=== PATIENT | male | born 1995 | race Caucasian/White ===

== ENCOUNTER 2018-05-21 07:49 | Emergency (ER) | payer SELFPAY ==
--- NOTE | 2018-05-21 09:22 | EDPHYS ---
Physician Documentation [facility] Name: Denys Triana Age: 22 yrs Sex: Male : 1995 Arrival Date: 05/21/2018 Time: 07:53 Bed 18 Private MD: Cynthia Wilcox ED Physician Dg Ramesh HPI: 05/21 08:31 This 22 yrs old Male presents to ER via Ambulatory with complaints of Ankle kb Pain. 08:32 The patient presents with pain, that is acute. The complaints affect the left ankle. kb Onset: The symptoms/episode began/occurred 1 week(s) ago. Context: The problem was sustained at work, resulted from an unknown cause, The mechanism of injury is unknown. The patient can fully bear weight on the affected extremity. the patient is able to ambulate. Associated signs and symptoms: The patient has no apparent associated signs or symptoms. Modifying factors: The symptoms are alleviated by nothing, the symptoms are aggravated by weight bearing. Severity of symptoms: At their worst the symptoms were mild, moderate, in the emergency department the symptoms are unchanged. The patient has not experienced similar symptoms in the past. The patient has not recently seen a physician. Pt states "I recently started working and my left ankle has been hurting since the first day.". Denies injury or trauma. 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 - Social history:: Smoking status: Patient/guardian denies using tobacco. - Ebola Screening: : No symptoms or risks identified at this time. ROS: 08:36 Constitutional: Negative for fever, chills, and weight loss, Neck: Negative for injury, kb pain, and swelling, Cardiovascular: Negative for chest pain, palpitations, and edema, Respiratory: Negative for shortness of breath, cough, wheezing, and pleuritic chest pain, Abdomen/GI: Negative for abdominal pain, nausea, vomiting, diarrhea, and constipation, Skin: Negative for injury, rash, and discoloration, Neuro: Negative for headache, weakness, numbness, tingling, and seizure. 08:36 MS/extremity: Positive for pain, of the left lateral malleolus. Exam: 08:36 Constitutional: This is a well developed, well nourished patient who is awake, alert, kb and in no acute distress. Head/Face: Normocephalic, atraumatic. Chest/axilla: Normal chest wall appearance and motion. Nontender with no deformity. No lesions are appreciated. Cardiovascular: Regular rate and rhythm with a normal S1 and S2. No gallops, murmurs, or rubs. Normal PMI, no JVD. No pulse deficits. Respiratory: Lungs have equal breath sounds bilaterally, clear to auscultation and percussion. No rales, rhonchi or wheezes noted. No increased work of breathing, no retractions or nasal flaring. Abdomen/GI: Soft, non-tender, with normal bowel sounds. No distension or tympany. No guarding or rebound. No evidence of tenderness throughout. Skin: Warm, dry with normal turgor. Normal color with no rashes, no lesions, and no evidence of cellulitis. MS/ Extremity: Pulses equal, no cyanosis. Neurovascular intact. Full, normal range of motion. Neuro: Awake and alert, GCS 15, oriented to person, place, time, and situation. Cranial nerves II-XII grossly intact. Motor strength 5/5 in all extremities. Sensory grossly intact. Cerebellar exam normal. Normal gait. Vital Signs: 08:03 BP 144 / 78; Pulse 104; Resp 16; Temp 97.4; Pulse Ox 99% on R/A; Weight 104.33 kg; hb Height 5 ft. 10 in. (177.80 cm); Pain 7/10; 09:10 BP 120 / 75; Pulse 65; Resp 18; Pulse Ox 99% on R/A; em 08:03 Body Mass Index 33.00 (104.33 kg, 177.80 cm) hb MDM: 08:00 Patient medically screened. kb 08:31 Data reviewed: vital signs, nurses notes. Data interpreted: Pulse oximetry: on room air kb is 99 %. Interpretation: normal. Counseling: I had a detailed discussion with the patient and/or guardian regarding: the historical points, exam findings, and any diagnostic results supporting the discharge/admit diagnosis, radiology results, the need for outpatient follow up, a orthopedic surgeon, to return to the emergency department if symptoms worsen or persist or if there are any questions or concerns that arise at home. 05/21 08:02 Order name: Ankle Left 3 View XRAY kb Administered Medications: No medications were administered Disposition: 16:07 Co-signature as Attending Physician, Dg Ramesh MD I agree with the assessment and kdr plan of care. Disposition: 05/21/18 09:22 Discharged to Home. Impression: Pain in left ankle and joints of left foot. - Condition is Stable. - Discharge Instructions: Ankle Pain. - Medication Reconciliation Form, Thank You Letter, Antibiotic Education, Prescription Opioid Use form. - Follow up: Emergency Department; When: As needed; Reason: Worsening of condition. Follow up: Private Physician; When: 2 - 3 days; Reason: Recheck today's complaints, Continuance of care, Re-evaluation by your physician. Signatures: Dispatcher [employer] EDMS Kerry Biggs, ZINC FURNACE CHARGER-C ZINC FURNACE CHARGER-Dg Calderón MD MD [facility] Pierre Mackenzie, FREIGHT RATE CLERK FREIGHT RATE CLERK em Nimisha Gomez, NYA RN Corrections: (The following items were deleted from the chart) 09:34 09:22 05/21/2018 09:22 Discharged to Home. Impression: Pain in left ankle and joints of em left foot. Condition is Stable. Forms are Medication Reconciliation Form, Thank You Letter, Antibiotic Education, Prescription Opioid Use. Follow up: Emergency Department; When: As needed; Reason: Worsening of condition. Follow up: Private Physician; When: 2 - 3 days; Reason: Recheck today's complaints, Continuance of care, Re-evaluation by your physician. kb
--- NOTE | 2018-05-21 09:22 | ER ---
Nurse's Notes [facility] Name: Denys Triana Age: 22 yrs Sex: Male : 1995 Arrival Date: 05/21/2018 Time: 07:53 Bed 18 Private MD: Cynthia Wilcox Diagnosis: Pain in left ankle and joints of left foot Presentation: 05/21 08:04 Presenting complaint: Patient states: Left ankle pain x 1 week. Denies injury. hb Transition of care: patient was not received from another setting of care. Onset of symptoms was May 21, 2018. Risk Assessment: Do you want to hurt yourself or someone else? Patient reports no desire to harm self or others. Initial Sepsis Screen: Does the patient meet any 2 criteria? No. Patient's initial sepsis screen is negative. Does the patient have a suspected source of infection? No. Patient's initial sepsis screen is negative. Care prior to arrival: None. 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 - Social history:: Smoking status: Patient/guardian denies using tobacco. - Ebola Screening: : No symptoms or risks identified at this time. Screenin:07 Abuse screen: Denies threats or abuse. Denies injuries from another. Nutritional hb screening: No deficits noted. Tuberculosis screening: No symptoms or risk factors identified. Fall Risk None identified. Assessment: 08:20 General: Appears in no apparent distress. comfortable, Behavior is calm, cooperative. em Pain: Complains of pain in left lateral malleolus Pain currently is 5 out of 10 on a pain scale. Neuro: Level of Consciousness is awake, alert, obeys commands, Oriented to person, place, time, situation. Cardiovascular: Patient's skin is warm and dry. Respiratory: Airway is patent Respiratory effort is even, unlabored, Respiratory pattern is regular, symmetrical. Derm: Skin is intact, is healthy with good turgor, Skin is pink, warm \T\ dry. Musculoskeletal: Range of motion: intact in all extremities, Swelling absent. Injury Description: no trauma. 08:30 Reassessment: I agree with previous assessment. hb 09:10 Reassessment: Patient appears in no apparent distress at this time. Patient and/or em family updated on plan of care and expected duration. Pain level reassessed. Patient is alert, oriented x 3, equal unlabored respirations, skin warm/dry/pink. Vital Signs: 08:03 BP 144 / 78; Pulse 104; Resp 16; Temp 97.4; Pulse Ox 99% on R/A; Weight 104.33 kg; hb Height 5 ft. 10 in. (177.80 cm); Pain 7/10; 09:10 BP 120 / 75; Pulse 65; Resp 18; Pulse Ox 99% on R/A; em 08:03 Body Mass Index 33.00 (104.33 kg, 177.80 cm) hb ED Course: 07:53 Patient arrived in ED. mr 07:54 Cynthia Wilcox MD is Private Physician. mr 07:54 Kerry Biggs FNP-C is [facility]. kb 07:54 Dg Ramesh MD is Attending Physician. kb 08:03 Arm band placed on. hb 08:06 Triage completed. hb 08:07 Patient has correct armband on for positive identification. Bed in low position. Call hb light in reach. Side rails up X 1. 08:29 Pierre Mackenzie LVN is Primary Nurse. em 08:47 X-ray completed. Portable x-ray completed in exam room. Patient tolerated procedure kw well. 08:50 Ankle Left 3 View XRAY In Process Unspecified. EDMS 09:30 No provider procedures requiring assistance completed. Patient did not have IV access em during this emergency room visit. Administered Medications: No medications were administered Outcome: 09:22 Discharge ordered by . kb 09:30 Discharged to home ambulatory. em 09:30 Condition: good 09:30 Discharge instructions given to patient, Instructed on discharge instructions, follow up and referral plans. Demonstrated understanding of instructions, follow-up care. 09:34 Patient left the ED. em Signatures: Dispatcher [employer] EDMS Kerry Biggs FNP-C FNP-Ckb Tiago Cathryn mr Pierre Mackenzie LVN LVN em Haily Dean Heather, RN RN hb Corrections: (The following items were deleted from the chart) 09:32 08:10 BP 120 / 75; Pulse 65bpm; Resp 18bpm; Pulse Ox 99% RA; em em
[2018-05-21 09:38] VITALS: TEMP 97.4; O2SAT 99
[2018-05-21 09:39] VITALS: BP 120/75
--- NOTE | 2018-05-21 10:17 | RAD REPORT ---
EXAM DESCRIPTION: RAD - Ankle Left 3 View - 05/21/2018 8:49 am CLINICAL HISTORY: Nontraumatic left ankle pain, history of clubfoot COMPARISON: None. FINDINGS: No acute fracture changes present. No dislocation or periosteal reaction. There is some [place] remottling along the anterior margin of the tibiotalar joint space. There is a generally flattened and minimized talar dome. No focal abnormality at the talar dome. Posterior talocalcaneal joint effu usama is seen. No joint effusion suspected. No air or foreign body in the soft tissues peer IMPRESSION: No fracture or acute bone or joint finding seen. The above detailed findings are probably all long-term sequela of the corrected club foot deformity.
== END 2018-05-21 09:34 | disposition home or self-care (01) ==
LOC: ER 07:49
DX: M25.572 Pain in left ankle and joints of left foot (principal); E03.9 Hypothyroidism, unspecified
CPT/HCPCS: 99283

== ENCOUNTER 2020-01-18 11:49 | Emergency (ER) | payer SELFPAY ==
--- OUTSIDE RECORDS SUMMARY | 2020-01-18 11:51 | XMS REPORT | Clinical Summary ---
:1995 Author Organization [facility] [employer] Address [address] [place] [id number] Care Team Providers Name Role Phone Cynthia Wiclox MD Primary Care Provider Allergies No Known Active Allergies Medications Medication Sig Dispensed Refills Start Date End Date Status levothyroxine (SYNTHROID, daily. 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
[2020-01-18] MEDS ORDERED: TETRACAINE HCL 0.5% 4ML OPTH ONE (12:30)
[2020-01-18] MEDS ORDERED: FLUORESCEIN SODIUM 1 MG/WRAP ONE (12:30)
--- NOTE | 2020-01-18 12:38 | ER ---
Nurse's Notes [facility] Name: Denys Triana Age: 24 yrs Sex: Male : 1995 Arrival Date: 01/18/2020 Time: 11:52 Bed 19 Private MD: Diagnosis: Unspecified disorder of eye and adnexa Presentation: 01/17 11:54 Chief complaint: Patient states: LEFT EYE REDNESS, IRRITATION FOR 2 HOURS. NO FEVER. 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 Coronavirus screen: Client denies travel out of the [place] in the last 14 days. At this time, the client does not indicate any symptoms associated with coronavirus-19. Ebola Screen: Patient denies travel to an Ebola-affected area in the 21 days before illness onset. Initial Sepsis Screen: Does the patient meet any 2 criteria? No. Patient's initial sepsis screen is negative. Risk Assessment: Do you want to hurt yourself or someone else? Patient reports no desire to harm self or others. Onset of symptoms was January 18, 2020. 11:54 Method Of Arrival: Ambulatory ll1 11:54 Acuity: IVORY 4 ll1 12:21 Initial Sepsis Screen: Does the patient have a suspected source of infection? No. ph Patient's initial sepsis screen is negative. Historical: - Allergies: 11:57 No Known Allergies; ll1 - PMHx: 11:57 Hypothyroidism; ll1 - PSHx: 11:57 Club Foot - bilateral; ll1 - Immunization history:: Flu vaccine is not up to date. - Social history:: Smoking status: Patient reports use of chewing tobacco. Patient denies any tobacco usage or history of. Screenin:21 Abuse screen: Denies threats or abuse. Denies injuries from another. Nutritional ph screening: No deficits noted. Tuberculosis screening: No symptoms or risk factors identified. Fall Risk None identified. Assessment: 12:20 General: Appears in no apparent distress. comfortable, Behavior is calm, cooperative, ph appropriate for age. Pain: Complains of pain in left eye. Neuro: Level of Consciousness is awake, alert, obeys commands, Oriented to person, place, time, situation. Cardiovascular: No deficits noted. Respiratory: No deficits noted. EENT: Sclera/Cornea are reddened in left eye. Derm: Skin is intact, is healthy with good turgor, Skin is pink, warm \T\ dry. Musculoskeletal: Circulation, motion, and sensation intact. Range of motion: intact in all extremities. Vital Signs: 11:54 BP 130 / 74; Pulse 89; Resp 17; Temp 98.4; Pulse Ox 100% ; Weight 99.79 kg; Height 5 ll1 ft. 10 in. (177.80 cm); Pain 4/10; 12:53 BP 122 / 76; Pulse 78; Resp 18; Temp 97.6; Pulse Ox 100% on R/A; ph 11:54 Body Mass Index 31.57 (99.79 kg, 177.80 cm) 1 ED Course: 11:52 Patient arrived in ED. mr 11:56 Sekou Poole PA is PHCP. [facility] 11:56 Dg Ramesh MD is Attending Physician. [facility] 11:56 Triage completed. 1 11:57 Arm band placed on Patient placed in an exam room, on a stretcher. 1 12:10 Socorro Sunshine RN is Primary Nurse. ph 12:21 Patient has correct armband on for positive identification. Bed in low position. Call ph light in reach. Side rails up X 1. Pulse ox on. NIBP on. 12:42 Mark García MD is Referral Physician. [facility] 12:53 No provider procedures requiring assistance completed. Patient did not have IV access ph during this emergency room visit. Administered Medications: 12:35 Drug: Tetracaine Drops 0.5 % 1 drops Route: Ophthalmic; Site: left eye; ph 12:52 Follow up: Response: No adverse reaction ph Outcome: 12:37 Discharge ordered by MD. [facility] 12:53 Discharged to home ambulatory. ph 12:53 Condition: good 12:53 Discharge instructions given to patient, Instructed on discharge instructions, follow up and referral plans. medication usage, Demonstrated understanding of instructions, follow-up care, medications, Prescriptions given X 1. 12:54 Patient left the ED. ph Signatures: Sekou Poole PA PA jmm Rivera, Mary mr Socorro Sunshine, RN RN ph Demetrio Rondon RN RN 1
--- NOTE | 2020-01-18 12:38 | EDPHYS ---
Physician Documentation [facility] Name: Denys Triana Age: 24 yrs Sex: Male : 1995 Arrival Date: 01/18/2020 Time: 11:52 Bed 19 Private MD: ED Physician Dg Ramesh HPI: 01/17 12:54 This 24 yrs old Male presents to ER via Ambulatory with complaints of Redness jmm of Eye. 12:54 The patient is experiencing burning, pain, redness. Onset: The symptoms/episode jmm began/occurred gradually, 2 hour(s) ago. Duration: the symptoms are continuous. Aggravated by nothing. Alleviated by nothing. This is a 24 year old male with a history of hypothyroidism that presents to the ED with complaints of left eye irritation and FB sensation beneath his left lower lid. Patient states this occurred after cutting wood. Patient is UTD on tetanus immunization. Historical: - Allergies: 11:57 No Known Allergies; ll1 - PMHx: 11:57 Hypothyroidism; ll1 - PSHx: 11:57 Club Foot - bilateral; ll1 - Immunization history:: Flu vaccine is not up to date. - Social history:: Smoking status: Patient reports use of chewing tobacco. Patient denies any tobacco usage or history of. ROS: 12:54 Constitutional: Negative for fever, chills, and weight loss, Cardiovascular: Negative jmm for chest pain, palpitations, and edema, Respiratory: Negative for shortness of breath, cough, wheezing, and pleuritic chest pain. 12:54 Abdomen/GI: Negative for abdominal pain, nausea, vomiting, diarrhea, and constipation, Neuro: Negative for headache, weakness, numbness, tingling, and seizure. 12:54 Eyes: Positive for foreign body sensation, redness. 12:54 ENT: Positive for 12:54 All other systems are negative. Exam: 12:54 Constitutional: This is a well developed, well nourished patient who is awake, alert, jmm and in no acute distress. Head/Face: atraumatic. 12:54 Chest/axilla: Normal chest wall appearance and motion. Cardiovascular: Regular rate and rhythm. No edema appreciated Respiratory: Normal respirations, no respiratory distress appreciated Abdomen/GI: Non distended, soft Back: Normal ROM Skin: General appearance color normal MS/ Extremity: Moves all extremities, no obvious deformities appreciated, no edema noted to the lower extremities Neuro: Awake and alert, normal gait Psych: Behavior is normal, Mood is normal, Patient is cooperative and pleasant 12:54 Eyes: Extraocular movements: intact throughout, Conjunctiva: injected, in the left eye, Corneas: foreign body, is not appreciated, a fluorescein strip employed to appreciate the findings, Lids and lashes: Vital Signs: 11:54 BP 130 / 74; Pulse 89; Resp 17; Temp 98.4; Pulse Ox 100% ; Weight 99.79 kg; Height 5 ll1 ft. 10 in. (177.80 cm); Pain 4/10; 12:53 BP 122 / 76; Pulse 78; Resp 18; Temp 97.6; Pulse Ox 100% on R/A; ph 11:54 Body Mass Index 31.57 (99.79 kg, 177.80 cm) ll1 MDM: 12:20 Patient medically screened. [facility] 12:35 Data reviewed: vital signs, nurses notes. Counseling: I had a detailed discussion with [facility] the patient and/or guardian regarding: the historical points, exam findings, and any diagnostic results supporting the discharge/admit diagnosis, the need for outpatient follow up, to return to the emergency department if symptoms worsen or persist or if there are any questions or concerns that arise at home. 13:38 ED course: NO FB appreciated or dye uptake appreciated on exam. Due to mechanism of [facility] possible injury patient prescribed topical abx and advised to follow up with discharge planner and otherwise given strict return precautions. Patient understood and agrees with the plan of care. . 01/17 12:06 Order name: Eye Tray; Complete Time: 12:19 [facility] 01/17 12:06 Order name: Fluoresene Opth strip; Complete Time: 12:20 [facility] Administered Medications: 12:35 Drug: Tetracaine Drops 0.5 % 1 drops Route: Ophthalmic; Site: left eye; ph 12:52 Follow up: Response: No adverse reaction ph Disposition: 14:21 Co-signature as Attending Physician, Dg Ramesh MD I agree with the assessment and kdr plan of care. Disposition: 01/18/20 12:37 Discharged to Home. Impression: Unspecified disorder of eye and adnexa. - Condition is Stable. - Discharge Instructions: Corneal Abrasion, [id number]. - Prescriptions for Erythromycin 5 mg/gram (0.5 %) Ophthalmic Ointment - apply 1 centimeter by OPHTHALMIC route 2-3 times daily for 7 days; 1 tube. - Medication Reconciliation Form, Thank You Letter, Antibiotic Education, Prescription Opioid Use form. - Follow up: Private Physician; When: 2 - 3 days; Reason: Recheck today's complaints, Continuance of care, Re-evaluation by your physician. Follow up: Mark García MD; When: 2 - 3 days; Reason: Recheck today's complaints, Continuance of care, Re-evaluation by your physician. Signatures: Dg Ramesh MD MD [facility] Sekou Poole PA PA [facility] Socorro Sunshine RN RN Demetrio Rondon RN RN ll1 Corrections: (The following items were deleted from the chart) 12:42 12:37 01/18/2020 12:37 Discharged to Home. Impression: Unspecified disorder of eye and jmm adnexa. Condition is Stable. Forms are Medication Reconciliation Form, Thank You Letter, Antibiotic Education, Prescription Opioid Use. Follow up: Private Physician; When: 2 - 3 days; Reason: Recheck today's complaints, Continuance of care, Re-evaluation by your physician. [facility] 12:54 12:42 01/18/2020 12:37 Discharged to Home. Impression: Unspecified disorder of eye and ph adnexa. Condition is Stable. Discharge Instructions: Corneal Abrasion, [id number]. Prescriptions for Erythromycin 5 mg/gram (0.5 %) Ophthalmic Ointment - apply 1 centimeter by OPHTHALMIC route 2-3 times daily for 7 days; 1 tube. and Forms are Medication Reconciliation Form, Thank You Letter, Antibiotic Education, Prescription Opioid Use. Follow up: Private Physician; When: 2 - 3 days; Reason: Recheck today's complaints, Continuance of care, Re-evaluation by your physician. Follow up: Mark García; When: 2 - 3 days; Reason: Recheck today's complaints, Continuance of care, Re-evaluation by your physician. [facility]
[2020-01-18 12:58] VITALS: O2SAT 100
[2020-01-18 13:00] VITALS: BP 122/76; TEMP 97.6
== END 2020-01-18 12:54 | disposition home or self-care (01) ==
LOC: ER 11:49
DX: H57.9 Unspecified disorder of eye and adnexa (principal); F17.220 Nicotine dependence, chewing tobacco, uncomplicated
CPT/HCPCS: 99283

== ENCOUNTER 2021-06-21 14:34 | Emergency (ER) | payer SELFPAY ==
--- OUTSIDE RECORDS SUMMARY | 2021-06-21 14:36 | XMS REPORT | Continuity of Care Document ---
:1995 Author Organization [facility] t Address [address] [place] [address] Care Team Providers Name Role Phone Emily Wilcox MD Primary Care Physician CARINA_Donna Attending Clinician Unavailable Carina Attending Clinician [phone] KANDICE_Ingris Attending Clinician Unavailable Christina Muller Attending Clinician [phone] JAY_A Attending Clinician Unavailable Koudela_A Attending Clinician Unavailable keffer_a Attending Clinician Unavailable CARINA_Donna Admitting Clinician Unavailable SCHAARROKENDRA_Ingris Admitting Clinician Unavailable KEFFER_A Admitting Clinician Unavailable Kohermilola_A Admitting Clinician Unavailable keffer_a Admitting Clinician Unavailable Payers Payer Name Policy Type Policy Number Effective Date Expiration Date S [facility] [id number] [place] [id number] 2020 (PPO) 00:00:00 [facility] [id number] Problems Condition Condition Condition Status Onset Resolution Last Treating Co mments Source Name Details Category Date Date Treatment Clinician Date Dysfunctio Dysfunctio Problem Active [facility] of n of 04 da eustachian Eustachian 00:00: Me dical tube Tube 00 Group Dizziness Dizziness Problem Active [facility] 1-04 da 00:00: Medical 00 Group No known No known Disease Metho di active active st problems problems Hospit a l Allergies, Adverse Reactions, Alerts This patient has no known allergies or adverse reactions. Family History Family Member Diagnosis Comments Start Date Stop Date Source Natural father [facility] Natural mother [facility] Social History Social Habit Start Date Stop Date Quantity Comments Source History of Snuff User [facility] Alcohol intake 2020-04-30 2020-04-30 1.71 /d [facility] 00:[facility]00 [facility] Tobacco use and 2018-05-25 2018-05-25 User of smokeless Me [facility] exposure 00:00:00 00:00:00 tobacco Hospital Sex Assigned At [birth year] [facility] 00:00[facility]00 [facility] Smoking Status Start Date Stop Date Source Never smoked tobacco [facility] Medications Ordered Filled Start Stop Current Ordering Indication Dosage Frequency Signature Comments Components Source Medication Medication Date Date Medication? Clinician (SIG) Name Name ibuprofen Yes [id number] 800mg Q8H Take 1 [facility] (ADVIL) 800 1-[address] [facility] tablet 00:00: (800 mg Hospi ta 00 total) by l mouth every 8 (eight) hours as needed for mild pain or moderate pain. levothyroxi Yes Q24H daily. 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 Plan of Care Planned Activity Planned Date Details Comments Source Future Scheduled 2021-05-21 COVID-[address] [facility] Test 16:41:15 (1) [code = COVID-19 VACCINE (1)] Future Scheduled 2021-05-21 Hepatitis C [facility] Test 16:41:15 screening (procedure) [code = 289034584] Future Scheduled 2021-05-21 INFLUENZA VACCINE [facility] Test 16:41:15 [code = INFLUENZA VACCINE] Encounters Start End Encounter Admission Attending Care Care Encounter Source Date/Time Date/Time Type Type Clinicians Facility Department ID 2021-05-02 2021-05-02 Outpatient CARINA_S [facility] [id number] [place] 12:02:00 12:02:00 [facility] 2021-05-02 2021-05-02 [facility] [id number] [facility]:00:00 00:00:00 Rebecca [id number] 2021-04-04 2021-04-04 Outpatient CARINAS [facility] [id number] [place] 04:57:00 04:57:00 216 [facility] 2021-04-04 2021-04-04 Outpatient [facility] [id number] 00:00:00 00:00:00 Rebecca [id number] 2021-02-15 2021-02-15 Outpatient [facility] 361 [place] 07:55:00 07:55:00 _L [facility] 2021-01-29 2021-01-29 Outpatient [facility] [address] [place] 04:23:00 04:23:00 _L 012 [facility] 2021-01-29 2021-01-[address] [facility] [id number] 00:00:00 00:00:00 , Jazmin [id number] Christina [id number] 2021-01-22 2021-01-22 Outpatient [facility] [address] [place] 09:03:00 09:03:00 _L 005 [facility] 2021-01-21 2021-01-21 Outpatient KEFFER_A [facility] [id number] [place] 09:31:00 09:31:00 [id number] [facility] 2020-11-24 2020-11-24 Outpatient Koudela_A [facility] [id number] [place] 01:02:00 01:02:00 [id number] 2020-11-22 2020-11-22 Outpatient Koudela_A [facility] [id number] [place] 10:32:00 10:32:00 [id number] [facility] 2020-11-22 2020-11-22 Niki [facility] [place] - [id number] [facility] 00:00:00 00:00:00 Discovery Jatin da PA-C: 600 [facility] [address] [place] [address] , Ph. 2020-11-21 2020-11-21 Outpatient keffer_a [facility] [id number] [place] 12:02:00 12:02:00 [id number] [facility] 2020-03-07 2020-03-07 Outpatient keffer_a [facility] [id number] [place] 02:32:00 02:32:00 [id number] [facility] Results This patient has no known results.
[2021-06-21] MEDS ORDERED: KETOROLAC 30 MG/ML INJ ONE (15:16)
[2021-06-21 15:25] LABS: Absolute Lymphocytes (CBC) 2.7 K/uL (0.7-4.9); Hematocrit 43.3 % (39.6-49.0); Lymphocytes % 29.7 % (15.3-44.8); MPV 7.2 fL (7.6-11.3); RBC Red Blood Cell Count 5.11 M/uL (4.33-5.43)
[2021-06-21 15:34] LABS: Potassium 3.7 mmol/L (3.5-5.1); Uric Acid 8.3 mg/dL (3.5-7.2)
--- NOTE | 2021-06-21 17:03 | ER ---
Nurse's Notes [facility] Name: Denys Triana Age: 26 yrs Sex: Male : 1995 Arrival Date: 06/21/2021 Time: 14:36 Bed 16 Private MD: Diagnosis: Gout, unspecified;Idiopathic gout, right ankle and foot Presentation: 06/21 14:48 Chief complaint: Patient states: Right ankle pain that started last week and has been ww getting worse. Has a history of club foot. Coronavirus screen: Vaccine status: Patient reports receiving the 2nd dose of the covid vaccine. Client denies travel out of the [place] in the last 14 days. Ebola Screen: Patient negative for fever greater than or equal to 101.5 degrees Fahrenheit, and additional compatible Ebola Virus Disease symptoms Patient denies travel to an Ebola-affected area in the 21 days before illness onset. Initial Sepsis Screen: Does the patient meet any 2 criteria? No. Patient's initial sepsis screen is negative. Does the patient have a suspected source of infection? No. Patient's initial sepsis screen is negative. Risk Assessment: Do you want to hurt yourself or someone else? Patient reports no desire to harm self or others. Onset of symptoms is unknown. 14:48 Method Of Arrival: Ambulatory ww 14:48 Acuity: IVORY 4 ww Triage Assessment: 14:49 General: Appears in no apparent distress. Behavior is calm, cooperative. Pain: ww Complains of pain in right ankle, right Achilles and anterior aspect of right ankle. Neuro: Level of Consciousness is awake, alert, obeys commands, Oriented to person, place, time, situation, Moves all extremities. Gait is steady, Speech is normal. Cardiovascular: Capillary refill < 3 seconds Patient's skin is warm and dry. Respiratory: Airway is patent Respiratory effort is even, unlabored, Respiratory pattern is regular, symmetrical. GI: No signs and/or symptoms were reported involving the gastrointestinal system. : No signs and/or symptoms were reported regarding the genitourinary system. Derm: Skin is intact, is healthy with good turgor, Skin is pink, warm \T\ dry. Musculoskeletal: Circulation, motion, and sensation intact. Reports pain in right ankle. Historical: - Allergies: 14:49 No Known Allergies; ww - Home Meds: 14:49 Seroquel 25 mg Oral tab [Active]; ww - PMHx: 14:49 Hypothyroidism; ww - PSHx: 14:49 bilateral feet; ww - Immunization history:: Adult Immunizations up to date. - Social history:: Smoking status: Patient reports use of chewing tobacco. Patient uses alcohol, occasionally. Screenin:51 Abuse screen: Denies threats or abuse. Denies injuries from another. Nutritional ww screening: No deficits noted. Tuberculosis screening: No symptoms or risk factors identified. Fall Risk None identified. Assessment: 14:53 General: Appears uncomfortable, obese, well groomed, Behavior is calm, cooperative, cb5 appropriate for age. Pain: Complains of pain in anterior aspect of right ankle and right ankle Pain currently is 6 out of 10 on a pain scale. Neuro: No deficits noted. Level of Consciousness is awake, alert, obeys commands, Oriented to person, place, time, situation, Appropriate for age. Cardiovascular: No deficits noted. Respiratory: No deficits noted. GI: No deficits noted. : No deficits noted. EENT: No deficits noted. Derm: No deficits noted. Musculoskeletal: No deficits noted. 16:57 Reassessment: Patient and/or family updated on plan of care and expected duration. Pain cb5 level reassessed. Vital Signs: 14:48 BP 139 / 88; Pulse 103; Resp 16; Temp 98.9; Pulse Ox 99% on R/A; Weight 108.86 kg; ww Height 5 ft. 10 in. (177.80 cm); Pain 5/10; 14:48 Body Mass Index 34.44 (108.86 kg, 177.80 cm) ED Course: 14:36 Patient arrived in ED. am2 14:48 Sekou Poole PA is PHCP. [facility] 14:48 Joe Black MD is Attending Physician. [facility] 14:49 Triage completed. ww 14:49 Arm band placed on right wrist. ww 14:51 Patient has correct armband on for positive identification. Bed in low position. Call ww light in reach. Side rails up X 1. Pulse ox on. NIBP on. 14:53 Kavitha Tsang, RN is Primary Nurse. cb5 15:11 Basic Metabolic Panel Sent. cb5 15:11 CBC with Automated Diff Sent. cb5 15:11 Uric Acid Sent. cb5 15:11 BMP Sent. cb5 15:11 CBC with Diff Sent. cb5 15:12 Uric Acid Sent. cb5 16:44 Ankle Right 3 View XRAY In Process Unspecified. EDMS 17:03 Esequiel Garcia MD is Referral Physician. jmm 17:13 No provider procedures requiring assistance completed. intact, bleeding controlled, No cb5 redness/swelling at site. Pressure dressing applied. Administered Medications: 16:57 Drug: Ketorolac 30 mg Route: IVP; Site: right antecubital; cb5 Outcome: 17:03 Discharge ordered by . jmm 17:13 Discharged to home ambulatory. cb5 17:13 Condition: stable 17:13 Discharge instructions given to patient, Instructed on discharge instructions, follow up and referral plans. medication usage, safety practices, Demonstrated understanding of instructions, follow-up care, medications, Prescriptions given X 2. 17:14 Patient left the ED. cb5 Signatures: Dispatcher [employer] EDMS Sekou Poole PA PA jmm Moreno, Amanda am2 Shantel Lynn, RN RN Kavitha Nunez, RN RN cb5
--- NOTE | 2021-06-21 17:03 | EDPHYS ---
Physician Documentation [facility] Name: Denys Triana Age: 26 yrs Sex: Male : 1995 Arrival Date: 06/21/2021 Time: 14:36 Bed 16 Private MD: ED Physician Joe Black HPI: 06/21 14:56 This 26 yrs old Male presents to ER via Ambulatory with complaints of Ankle Injury - jmm right. 14:56 The patient presents with pain. Onset: The symptoms/episode began/occurred gradually. jmm Associated signs and symptoms: Pertinent positives: swelling. Modifying factors: The symptoms are alleviated by nothing, the symptoms are aggravated by weight bearing. This is a 26 year old v male with no chronic medical conditions that presents to the ED with complaints of right ankle pain. Denies injury. Patient states he has had gout in the great to toe before. . Historical: - Allergies: 14:49 No Known Allergies; ww - Home Meds: 14:49 Seroquel 25 mg Oral tab [Active]; ww - PMHx: 14:49 Hypothyroidism; ww - PSHx: 14:49 bilateral feet; ww - Immunization history:: Adult Immunizations up to date. - Social history:: Smoking status: Patient reports use of chewing tobacco. Patient uses alcohol, occasionally. ROS: 14:56 Constitutional: Negative for fever, chills, and weight loss, Cardiovascular: Negative jmm for chest pain, palpitations, and edema, Respiratory: Negative for shortness of breath, cough, wheezing, and pleuritic chest pain. 14:56 MS/extremity: Positive for pain. 14:56 All other systems are negative. Exam: 14:56 Constitutional: This is a well developed, well nourished patient who is awake, alert, jmm and in no acute distress. Head/Face: atraumatic. Eyes: EOMI, no conjunctival erythema appreciated ENT: Moist Mucus Membranes Neck: Trachea midline, Supple Chest/axilla: Normal chest wall appearance and motion. Cardiovascular: Regular rate and rhythm. No edema appreciated Respiratory: Normal respirations, no respiratory distress appreciated Abdomen/GI: Non distended, soft Back: Normal ROM 14:56 Musculoskeletal/extremity: right anterior ankle ttp, compartments are soft, full dorsalis pulse, NVI. 14:56 Skin: Appearance: Color: normal in color. 14:56 Neuro: Orientation: is normal, Mentation: is normal, Memory: is normal. 14:56 Psych: Behavior/mood is pleasant, cooperative. Vital Signs: 14:48 BP 139 / 88; Pulse 103; Resp 16; Temp 98.9; Pulse Ox 99% on R/A; Weight 108.86 kg; ww Height 5 ft. 10 in. (177.80 cm); Pain 5/10; 14:48 Body Mass Index 34.44 (108.86 kg, 177.80 cm) ww MDM: 14:56 Patient medically screened. heath 17:02 Data reviewed: vital signs, nurses notes. Counseling: I had a detailed discussion with [facility] the patient and/or guardian regarding: the historical points, exam findings, and any diagnostic results supporting the discharge/admit diagnosis, lab results, the need for outpatient follow up, to return to the emergency department if symptoms worsen or persist or if there are any questions or concerns that arise at home. 06/21 15:03 Order name: CBC with Diff [facility] 06/21 15:03 Order name: BMP [facility] 06/21 15:03 Order name: Uric Acid [facility] 06/21 15:04 Order name: CBC with Automated Diff; Complete Time: 16:10 [facility] 06/21 15:04 Order name: Basic Metabolic Panel; Complete Time: 16:10 [facility] 06/21 15:04 Order name: Uric Acid; Complete Time: 16:10 [facility] 06/21 15:03 Order name: Saline Lock; Complete Time: 15:11 [facility] 06/21 15:06 Order name: Ankle Right 3 View XRAY; Complete Time: 17:42 [facility] Administered Medications: 16:57 Drug: Ketorolac 30 mg Route: IVP; Site: right antecubital; cb5 Disposition Summary: 06/21/21 17:03 Discharge Ordered Location: Home [facility] Condition: Stable [facility] Diagnosis - Gout, unspecified [facility] - Idiopathic gout, right ankle and foot [facility] Followup: [facility] - With: Esequiel Garcia MD - When: 2 - 3 days - Reason: Recheck today's complaints, Continuance of care, Re-evaluation by your physician Discharge Instructions: - Discharge Summary Sheet [facility] - Gout [facility] - Low-Purine Eating Plan [facility] Forms: - Medication Reconciliation Form jmm - Thank You Letter jmm - Antibiotic Education jmm - Prescription Opioid Use jm Prescriptions: - Diclofenac Sodium 75 mg Oral Tablet Sustained Release - take 1 tablet by ORAL route 2 times per day; 30 tablet; Refills: 0, Product jmm Selection Permitted - Medrol (Javier) 4 mg Oral Tablets, Dose Pack - take 1 tablet by ORAL route as directed - follow package instructions; 1 jmm packet; Refills: 0, Product Selection Permitted Signatures: Dispatcher [employer] EDJoe Nath MD MD cha Mickail, Joel, PA PA jmm Wood, Whitney, RN RN ww Kavitha Tsang, RN RN cb5
--- NOTE | 2021-06-21 17:08 | RAD REPORT ---
EXAM DESCRIPTION: RAD - Ankle Right 3 View - 06/21/2021 4:44 pm CLINICAL HISTORY: Right ankle pain FINDINGS: No fracture or dislocation is seen. 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
[2021-06-21 17:23] VITALS: BP 139/88; TEMP 98.9; O2SAT 99
== END 2021-06-21 17:14 | disposition home or self-care (01) ==
LOC: ER 14:34
DX: M10.071 Idiopathic gout, right ankle and foot (principal); E03.9 Hypothyroidism, unspecified; F17.220 Nicotine dependence, chewing tobacco, uncomplicated
CPT/HCPCS: 36415; 80048; 84550; 85025; 96374; 99284

== ENCOUNTER 2022-10-11 14:52 | Emergency (ER) | payer SELFPAY ==
--- OUTSIDE RECORDS SUMMARY | 2022-10-11 14:57 | XMS REPORT | Continuity of Care Document ---
:1995 Author Organization [facility] t Address [address] [place] [address] Care Team Providers Name Role Phone Cynthia Wilcox MD Primary Care Physician LAISHA Attending Clinician Unavailable Rebecca Lim Attending Clinician [phone] LAVINIA Attending Clinician Unavailable Jazmin Muller Attending Clinician [phone] JAY_Alberta Attending Clinician Unavailable Koudela_A Attending Clinician Unavailable keffer_a Attending Clinician Unavailable José ROMERO, Varun Rocha Attending Clinician WATERS_S Admitting Clinician Unavailable LAVINIA Admitting Clinician Unavailable KEFFER_A Admitting Clinician Unavailable Koudela_A Admitting Clinician Unavailable keffer_a Admitting Clinician Unavailable Payers Payer Name Policy Type Policy Number Effective Date Expiration Date S [facility] [id number] [place] [id number] 2020 (PPO) 00:00:00 [facility] [id number] Problems Condition Condition Condition Status Onset Resolution Last Treating Co mments Source Name Details Category Date Date Treatment Clinician Date Mixed Mixed Problem Active 2020-04 [place] anxiety Anxiety 0-12 Communi and and 00:00: ty depressive Depressive 00 Ho spita disorder Disorder l Clinics Dysfunctio Dysfunctio Problem Active [facility] n of n of 04-23 da eustachian Eustachian 00:00: Me dical tube Tube 00 Group Dizziness Dizziness Problem Active [facility] 04 da 00:00: Medical 00 Group No known No known Disease Metho di active active st problems problems Hospit a l Allergies, Adverse Reactions, Alerts Allergy Allergy Status Severity Reaction(s) Onset Inactive Treating Comm ents Source Name Type Date Date Clinician Zithroma Allergy Active [place] x to Communi substanc ty e Hospita l Clinics Family History Family Member Diagnosis Comments Start Date Stop Date Source Natural father [facility] Natural mother [facility] Social History Social Habit Start Date Stop Date Quantity Comments Source Gender identity [facility] Sexual [facility] History of tobacco Snuff User [facility] use [facility] Alcohol intake 2020-04-30 2020-04-30 Current drinker [facility] 00:00:00 00:00:00 of alcohol Hospital (finding) History of Social 2020-04-30 2020-04-[address] function 00:00:00 00:00:00 Hospital Tobacco use and 2018-05-25 2018-05-25 User of Yarsanism exposure 00:00:00 00:00:00 smokeless Hospital tobacco Sex Assigned At [birth year] [facility] 00:00:00 00:00:00 Hospital Smoking Status Start Date Stop Date Source Current Every Day Smoker [facility] Never smoked tobacco [facility] Medications Ordered Filled Start Stop Current Ordering Indication Dosage Frequency Signature Comments Components Source Medication Medication Date Date Medication? Clinician (SIG) Name Name ibuprofen Yes [id number] 800mg Q8H Take 1 [facility] (ADVIL) 800 1-[address] MG tablet 00:00: (800 mg Hospi ta 00 total) by l mouth every 8 (eight) hours as needed for mild pain or moderate pain. ibuprofen Yes [id number] 800mg Q8H Take 1 [facility] (ADVIL) 800 1-[address] MG tablet 00:00: (800 mg Hospi ta 00 total) by l mouth every 8 (eight) hours as needed for mild pain or moderate pain. ibuprofen Yes [id number] 800mg Q8H Take 1 [facility] (ADVIL) 800 1-[address] MG tablet 00:00: (800 mg Hospi ta 00 total) by l mouth every 8 (eight) hours as needed for mild pain or moderate pain. ibuprofen Yes [id number] 800mg Q8H Take 1 [facility] (ADVIL) 800 1-[address] MG tablet 00:00: (800 mg Hospi ta 00 total) by l mouth every 8 (eight) hours as needed for mild pain or moderate pain. levothyroxi 2019-0 Yes Q24H daily. Meth [facility] ne 2-11 st (SYNTHROID, 14:09: Hospit a LEVOXYL) 37 l 100 mcg tablet levothyroxi 2019-0 Yes Q24H daily. Meth [facility] ne 2-[facility] st (SYNTHROID, 14:09: Hospit a LEVOXYL) 37 l 100 mcg tablet levothyroxi 2019-0 Yes Q24H daily. Meth [facility] ne 2-[facility] st (SYNTHROID, 08:09: Hospit a LEVOXYL) 37 l 100 mcg tablet levothyroxi 2019-0 Yes Q24H daily. Meth [facility] ne [facility] st (SYNTHROID, 08:09: Hospit a LEVOXYL) 37 l 100 mcg tablet prednisone prednisone No 1 BID prednisone [place] 20 mg 20 mg 20 mg Communi tablet Take tablet Take tablet ty 1 tablet 1 tablet Take 1 Hospi ta twice a day twice a day tablet l by oral by oral twice a Clinic s route for 5 route for 5 day by days. days. oral route for 5 days. sertraline sertraline No sertraline [place] 25 mg 25 mg 25 mg Communi tablet Take tablet Take tablet ty 1 tablet 1 tablet Take 1 Hospi ta every day every day tablet l by oral by oral every day Clin ics route as route as by oral directed directed route as for 30 for 30 directed days. days. for 30 days. dicyclomine dicyclomine No 1 TID dicyclomin [place] 20 mg 20 mg e 20 mg Communi tablet Take tablet Take tablet ty 1 tablet 3 1 tablet 3 Take 1 H ospita times a day times a day tablet 3 l by oral by oral times a Clinic s route as route as day by needed. needed. oral route as needed. guanfacine guanfacine No 1 Q1D guanfacine [place] ER 1 mg ER 1 mg ER 1 mg Commun i tablet,exte tablet,exte tablet,ext ty nded nded ended Hospita release 24 release 24 release 24 l hr Take 1 hr Take 1 hr Take 1 Clinics tablet tablet tablet every day every day every day by oral by oral by oral route in route in route in the evening the evening the for 30 for 30 evening days. days. for 30 days. sertraline sertraline No sertraline [place] 25 mg 25 mg 25 mg Communi tablet TAKE tablet TAKE tablet ty 1 TABLET BY 1 TABLET BY TAKE 1 Hospita MOUTH 1 MOUTH 1 TABLET BY l TIME EACH TIME EACH MOUTH 1 Cl inics DAY DAY TIME EACH DAY sertraline sertraline No 1 Q1D sertraline [place] 25 mg 25 mg 25 mg Communi tablet Take tablet Take tablet ty 1 tablet 1 tablet Take 1 Hospi ta every day every day tablet l by oral by oral every day Clin ics route as route as by oral directed directed route as for 30 for 30 directed days. days. for 30 days. acetylcyste acetylcyste No 2capsul BID acetylcyst [place] ine 600 mg ine 600 mg e(s) eine 600 Communi capsule capsule mg capsule ty Take 2 Take 2 Take 2 Hospita capsules capsules capsules l twice a day twice a day twice a Clinics by oral by oral day by route. route. oral route. doxycycline doxycycline No 1capsul BID doxycyclin [place] hyclate 100 hyclate 100 e(s) e hyclate Communi mg capsule mg capsule 100 mg t y Take 1 Take 1 capsule Hospita capsule capsule Take 1 l twice a day twice a day capsule Clinics by oral by oral twice a route for route for day by 10 days. 10 days. oral route for 10 days. fenofibrate fenofibrate No 1 Q1D fenofibrat [place] nanocrystal nanocrystal e C ommuni lized 145 lized 145 nanocrysta ty mg tablet mg tablet llized 145 Hospita Take 1 Take 1 mg tablet l tablet tablet Take 1 Clinics every day every day tablet by oral by oral every day route. route. by oral route. ivermectin ivermectin No 2 BID ivermectin [place] 3 mg tablet 3 mg tablet 3 mg C ommuni Take 2 Take 2 tablet ty tablets tablets Take 2 Hospita twice a day twice a day tablets l by oral by oral twice a Clinic s route for 5 route for 5 day by days. days. oral route for 5 days. Immunizations Ordered Immunization Filled Immunization Date Status Commen ts Source Name Name COVID-19, mRNA, COVID-19, mRNA, 2020-12-18 Completed [facility] LNP-S, PF, 30 LNP-S, PF, 30 00:00:00 Hospital Clinics mcg/0.3 mL dose mcg/0.3 mL dose ([employer]) ([employer]) COVID-19, mRNA, COVID-19, mRNA, 2020-11-17 Completed [facility] LNP-S, PF, 30 LNP-S, PF, 30 00:00:00 Hospital Clinics mcg/0.3 mL dose mcg/0.3 mL dose ([employer]) ([employer]) Vital Signs Vital Name Observation Time Observation Value Comments Source BP Diastolic 2021-05-02 00:00:00 82 mm[Hg] [facility] s Height 2021-05-02 00:00:00 70 [in_i] [facility] s BMI (Body Mass 2021-05-02 00:00:00 34.8 kg/m2 [facility]) Hospital Clinic s BP Systolic 2021-05-02 00:00:00 136 mm[Hg] [facility] s Body Weight 2021-05-02 00:00:00 3878.4 [oz_av] [facility] s BP Diastolic 2021-04-04 00:00:00 79 mm[Hg] [facility] s Height 2021-04-04 00:00:00 70 [in_i] [facility] s BMI (Body Mass 2021-04-04 00:00:00 34.7 kg/m2 [facility]) [facility] s BP Systolic 2021-04-04 00:00:00 137 mm[Hg] [facility] s Body Weight 2021-04-04 00:00:00 3868.8 [oz_av] [facility] s BP Diastolic 2021-01-29 00:00:00 85 mm[Hg] [facility] s Height 2021-01-29 00:00:00 70 [in_i] [facility] s BP Systolic 2021-01-29 00:00:00 131 mm[Hg] [facility] s BP Diastolic 2020-11-22 00:00:00 80 mm[Hg] [facility] Height 2020-11-22 00:00:00 70 [in_i] [facility] BMI (Body Mass 2020-11-22 00:00:00 35.4 kg/m2 [facility]) Group BP Systolic 2020-11-22 00:00:00 122 mm[Hg] [facility] Body Weight 2020-11-22 00:00:00 3953 [oz_av] [facility] Body height 2020-04-30 19:43:00 177.8 cm [facility] Body weight 2020-04-30 19:43:00 99.791 kg [facility] BMI 2020-04-30 19:43:00 31.57 kg/m2 [facility] Procedures This patient has no known procedures. Plan of Care Planned Activity Planned Date Details Comments Source Future Scheduled Test 2022-10-04 COVID-19 VACCINE [facility] 20:07:07 (#1) [code = COVID-19 VACCINE (#1)] Future Scheduled Test 2022-10-04 Hepatitis C Method [facility] 20:07:07 screening (procedure) [code = 322178900] Future Scheduled Test 2022-10-04 INFLUENZA VACCINE [facility] 20:07:07 [code = INFLUENZA VACCINE] Future Scheduled Test 2021-05-21 COVID-19 VACCINE (1) [facility] 16:41:15 [code = COVID-19 VACCINE (1)] Future Scheduled Test 2021-05-21 Hepatitis C Method [facility] 16:41:15 screening (procedure) [code = 488236447] Future Scheduled Test 2021-05-21 INFLUENZA VACCINE [facility] 16:41:15 [code = INFLUENZA VACCINE] Diagnostic Test 2021-04-04 rapid SARS CoV 2 Ag, [facility] Pending 00:00:00 QL IA, respiratory Hospital Clinics specimen [code = rapid SARS CoV 2 Ag, QL IA, respiratory specimen] Diagnostic Test 2021-04-04 rapid strep group A, [facility] Pending 00:00:00 throat [code = rapid Hospita l Clinics strep group A, throat] Diagnostic Test 2021-04-04 rapid flu (A+B) [facility] Pending 00:00:00 [code = rapid flu Hospital C linics (A+B)] Future Scheduled Test COVID-19 VACCINE (1) [facility] [code = COVID-19 VACCINE (1)] Future Scheduled Test Hepatitis C Method [facility] screening (procedure) [code = 678751892] Future Scheduled Test INFLUENZA VACCINE [facility] [code = INFLUENZA VACCINE] Future Scheduled Test COVID-19 VACCINE (1) [facility] [code = COVID-19 VACCINE (1)] Future Scheduled Test Hepatitis C Method [facility] screening (procedure) [code = 199577207] Future Scheduled Test INFLUENZA VACCINE [facility] [code = INFLUENZA VACCINE] Instructions [facility] Clinic s Encounters Start End Encounter Admission Attending Care Care Encounter Source Date/Time Date/Time Type Type Clinicians Facility Department ID 2021-10-17 2021-10-17 Outpatient WATERS_S [facility] [id number] [place] 03:46:00 03:46:00 [facility] Clin[facility] 2021-05-02 2021-05-02 Outpatient WATERS_S [facility] [id number] [place] 12:02:00 12:02:00 113 [facility] Hosp[facility] Clinics 2021-05-02 2021-05-02 Outpatient Lim, [facility] [id number] 00:00:00 00:00:00 Rebecca [id number] 2021-05-02 2021-05-02 Rebecca [facility] [place] [facility] [place] 00:00:00 00:00:00 [facility] 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 2021-04-04 2021-04-04 Outpatient WATERS_S [facility] [id number] [place] 04:57:00 04:57:00 216 Commun i ty Hosp[facility] 2021-04-04 2021-04-04 Outpatient [facility] [id number] 00:00:00 00:00:00 Rebecca [id number] 2021-04-04 2021-04-04 Rebecca [facility] [place] [facility] [place] [id number] [place] 00:00:00 00:00:00 [facility] TOOL TEND[employer]-BE[employer] VINER-C: [address] [address], [place] [address] , Ph. 2021-02-15 2021-02-15 Outpatient [facility] 361 [place] 07:55:00 07:55:00 _L 029 Commun i ty Hospita l Clinics 2021-01-29 2021-01-29 Outpatient [facility] 361 [place] 04:23:00 04:23:00 _L 012 Commun i ty Hospita [facility] 2021-01-29 2021-01-29 Outpatient [facility] [id number] 00:00:00 00:00:00 , Jazmin [id number] Edita [id number] 2021-01-29 2021-01-29 Jazmin Kohler [facility] [place] [facility] [place] 12 [place] 00:00:00 00:00:00 [facility] MARTIN rdzP-C: [address] [address], [place] [address] , Ph. 2021-01-22 2021-01-22 Outpatient SCHAUBROECK [facility] 361 [place] 09:03:00 09:03:00 _L 005 Commun i ty Hospita l Clinics 2021-01-21 2021-01-21 Outpatient KEFFER_A [facility] [id number] [place] 09:31:00 09:31:00 [id number] Commun i ty Hospita l Clinics 2020-11-24 2020-11-24 Outpatient Koudela_A [facility] [id number] [place] 01:02:00 01:02:00 0807 [facility] 2020-11-22 2020-11-22 Niki Koudela_A [facility] [place] - [id number] [place] 00:00:00 00:00:00 [facility] Jatin 0805 da PA-C: 600 [facility] [address] [place] [address] , Ph. 2020-11-21 2020-11-21 Outpatient keffer_a [facility] [id number] [place] 12:02:00 12:02:00 0804 [facility] 2020-04-30 2020-04-30 Office Varun Kumar 1.2.840.1 [id number] [facility] 13:04:58 14:29:[address] [id number] 3.430.2.7 Hospit a .3.249458 l .8 2020-04-30 2020-04-30 Travel 1.2.840.1 [id number] [facility] 00:00:00 00:00:[address] 3.430.2.7 0.2.7.3.698 Ho spita .3.846988 084.8 l .8 2020-04-27 2020-04-27 Travel 1.2.840.1 [id number] [facility] 00:00:00 00:00:[address] 3.430.2.7 0.2.7.3.698 Ho spita .3.742601 084.8 l .8 2020-04-16 2020-04-16 Travel 1.2.840.1 1.2.999.766 [id number] [facility] 00:00:00 00:00:[address] 3.430.2.7 0.2.7.3.698 Ho spita .3.459562 084.8 l .8 2020-03-07 2020-03-07 Outpatient keffer_a [facility] [id number] [place] 02:32:00 02:32:00 [id number] [facility] Results Test Description Test Time Test Comments Results Result Comments Source rapid strep group A, throat 2021-04-04 15:47:00 Test Item Value Reference Range Interpretation Comme nts Strep (test code = [facility]rep) [facility] [id number] 15:47:00 Test Item Value Reference Range Interpretation Comments Strep (test code = Strep) [facility] ([facility]+B[facility]2021-04-04 15:46:00 Test Item Value Reference Range Interpretation Comments FLU A (test code = FLU A) negative FLU B (test code = FLU B) [facility]2021-04-04 15:46:00 Test Item Value Reference Range Interpretation Comments FLU A (test code = FLU A) negative FLU B (test code = FLU B) negative [facility] Ag [Presence] in Respiratory specimen by Rapid [id number] 15:39:00 Test Item Value Reference Range Interpretation Comments SARS CoV 2 (test code = SARS CoV 2) [facility] Ag [Presence] in Respiratory specimen by Rapid [id number] 15:39:00 Test Item Value Reference Range Interpretation Comments SARS CoV 2 (test code = SARS CoV 2) positive [facility]
[2022-10-11 15:39] LABS: Specific Gravity 1.026 (1.005-1.030); Urine Bacteria None Seen /HPF (<20); Urine Bilirubin NEGATIVE (Negative); Urine Blood Trace (Negative); Urine Clarity Clear (Clear); Urine Color Light-Yellow (Yellow); Urine Glucose NEGATIVE (Negative); Urine Protein NEGATIVE (Negative); Urine RBC <5 /HPF (None Seen); Urine Urobilinogen Normal (Normal)
[2022-10-11 15:40] LABS: Absolute Lymphocytes (CBC) 4.1 K/uL (0.7-4.9); Hematocrit 48.1 % (39.6-49.0); Lymphocytes % 33.7 % (15.3-44.8); MCV 84.6 fL (80-100); MPV 7.2 fL (7.6-11.3); RBC Red Blood Cell Count 5.69 M/uL (4.33-5.43)
[2022-10-11 15:54] LABS: Albumin 4.3 g/dL (3.4-5.0); Bilirubin Total 0.4 mg/dL (0.2-1.0); Potassium 4.4 mEq/L (3.5-5.1); Protein, Total 8.2 g/dL (6.4-8.2)
--- NOTE | 2022-10-11 16:52 | RAD REPORT ---
EXAM DESCRIPTION: US - Abdomen Exam Limited - 10/11/2022 4:18 pm CLINICAL HISTORY: Abdominal pain. COMPARISON: None. FINDINGS: Patient had recently eaten resulting in the gallbladder being contracted. This limits eval uation. The gallbladder wall is not thickened. A gallstone is not seen. The biliary tree is normal caliber. IMPRESSION: Grossly normal gallbladder ultrasound
[2022-10-11] MEDS ORDERED: ONDANSETRON 4 MG (ODT) TAB ONE (18:08)
[2022-10-11] MEDS ORDERED: FAMOTIDINE 20 MG/2 ML VIAL IV ONE (18:08)
[2022-10-11] MEDS ORDERED: NA CHLORIDE 0.9% 1,000 ML ONE (18:08)
--- NOTE | 2022-10-11 18:51 | RAD REPORT ---
EXAM DESCRIPTION: CT - Abdomen Pelvis W Contrast - 10/11/2022 6:32 pm CLINICAL HISTORY: Abdominal pain COMPARISON: 2016 TECHNIQUE: Computed axial tomography of the abdomen pelvis was obtained. 100 cc Isovue-300 was admin istered intravenously. Oral contrast was not requested which limits evaluation of bowel and appendix All CT scans are performed using dose optimization technique as appropriate and may include automated exposure control or mA/KV adjustment according to patient size. FINDINGS: The liver, pancreas, adrenal and kidneys appear unremarkable. Spleen 13 centimeters There is no evidence of diverticulitis. Normal appendix Tiny umbilical hernia IMPRESSION: Mild splenomegaly
--- NOTE | 2022-10-11 19:14 | EDPHYS ---
Physician Documentation [facility] Name: Denys Triana Age: 27 yrs Sex: Male : 1995 Arrival Date: 10/11/2022 Time: 14:52 Bed 18 Private MD: ED Physician Joe Black HPI: 10/11 15:20 This 27 yrs old Male presents to ER via Ambulatory with complaints of Epigastric Pain, cp Back Pain. 15:20 The patient presents with abdominal pain in the epigastric area. Onset: The cp symptoms/episode began/occurred 1 week(s) ago. The symptoms radiate to back. 15:20 Associated signs and symptoms: Pertinent positives: nausea, Pertinent negatives: chest cp pain, constipation, diarrhea, fever, vomiting. The symptoms are described as waxing/waning. Modifying factors: the symptoms are aggravated by nothing. 15:20 Severity of pain: in the emergency department the pain has improved. cp Historical: - Allergies: 15:15 Zithromax; iw - Home Meds: 15:15 None [Active]; iw - PMHx: 15:15 Hypothyroidism; iw - PSHx: 15:15 bilateral feet; iw - Immunization history:: Adult Immunizations up to date. - Social history:: Smoking status: . ROS: 15:25 Constitutional: Negative for body aches, chills, fever, poor PO intake. cp 15:25 Eyes: Negative for injury, pain, redness, and discharge. cp 15:25 ENT: Negative for drainage from ear(s), ear pain, sore throat, difficulty swallowing, difficulty handling secretions. 15:25 Cardiovascular: Negative for chest pain, edema, palpitations. 15:25 Respiratory: Negative for cough, shortness of breath, wheezing. 15:25 Abdomen/GI: Positive for abdominal pain, nausea, of the epigastric area, Negative for vomiting, diarrhea, constipation, anorexia, dysphagia. 15:25 Back: Positive for radiated pain. 15:25 Neuro: Negative for altered mental status, dizziness, headache, weakness. 15:25 All other systems are negative. Exam: 15:30 Constitutional: The patient appears in no acute distress, alert, awake, cp non-diaphoretic, non-toxic, well developed, well nourished, overweight 15:30 Head/Face: Normocephalic, atraumatic. cp 15:30 Eyes: Periorbital structures: appear normal, Conjunctiva: normal, no exudate, no injection, Sclera: no appreciated abnormality, Lids and lashes: appear normal, bilaterally. 15:30 ENT: External ear(s): are unremarkable, Nose: is normal, Mouth: Lips: moist, Oral mucosa: pink and intact, moist, Posterior pharynx: is normal, airway is patent, no erythema, no exudate. 15:30 Chest/axilla: Inspection: normal. 15:30 Cardiovascular: Rate: normal, Rhythm: regular. 15:30 Respiratory: the patient does not display signs of respiratory distress, Respirations: normal, no use of accessory muscles, no retractions, labored breathing, is not present, Breath sounds: are clear throughout, no decreased breath sounds, no stridor, no wheezing. 15:30 Abdomen/GI: Inspection: abdomen appears normal, Bowel sounds: active, all quadrants, Palpation: soft, in all quadrants, moderate abdominal tenderness, in the epigastric area, rebound tenderness, is not appreciated, involuntary guarding, is not appreciated. 15:30 Back: CVA tenderness, is absent. Vital Signs: 15:16 BP 125 / 87; Pulse 87; Resp 16; Temp 98.3; Pulse Ox 98% on R/A; Weight 104.33 kg; iw Height 5 ft. 10 in. ; Pain 5/10; 17:56 BP 129 / 79; Pulse 81; Resp 18; Pulse Ox 100% on R/A; ld1 15:16 Body Mass Index 33.00 (104.33 kg, 177.8 cm) iw 15:16 Pain Scale: Adult iw MDM: 15:19 Patient medically screened. cp 19:14 Data reviewed: vital signs, nurses notes, lab test result(s), radiologic studies, CT cp scan, ultrasound. 19:14 Differential diagnosis: appendicitis, cholecystitis, Cholelithiasis, gastritis, cp gastroesophageal reflux disease, non-specific abd pain, pancreatitis, Peptic Ulcer Disease, Perf. Duodenal Ulcer, Perf. Gastric Ulcer. I considered the following discharge prescriptions or medication management in the emergency department Medications were administered in the Emergency Department. See MAR. Counseling: I had a detailed discussion with the patient and/or guardian regarding: the historical points, exam findings, and any diagnostic results supporting the discharge/admit diagnosis, lab results, radiology results, to return to the emergency department if symptoms worsen or persist or if there are any questions or concerns that arise at home. Response to treatment: the patient's symptoms have markedly improved after treatment, and as a result, I will discharge patient. Special discussion: Based on the patient's Hx, exam, and Dx evaluation, there is no indication for emergent surgery or inpatient Tx. It is understood by the patient/guardian that if the Sx's persist or worsen they need to return immediately for re-evaluation. 10/11 15:12 Order name: CBC with Diff; Complete Time: 17:16 cp 10/11 17:16 Interpretation: Normal except: WBC 12.10; RBC 5.69; MPV 7.2. 10/11 15:12 Order name: CMP; Complete Time: 17:16 cp 10/11 15:12 Order name: Lipase; Complete Time: 17:16 cp 10/11 15:12 Order name: Urinalysis w/ reflexes; Complete Time: 17:16 10/11 15:12 Order name: Abdomen Limited US; Complete Time: 17:16 cp 10/11 17:17 Interpretation: Report reviewed. 10/11 17:17 Order name: CT Abd/Pelvis - IV Contrast Only; Complete Time: 19:02 cp 10/11 19:02 Interpretation: Report reviewed. 10/11 15:12 Order name: IV Saline Lock; Complete Time: 17:34 cp 10/11 15:12 Order name: Labs collected and sent; Complete Time: 17:34 cp 10/11 15:12 Order name: NPO; Complete Time: 17:34 cp Administered Medications: 18:05 Drug: NS 0.9% IV 1000 ml Route: IV; Rate: 1 bolus; Site: right antecubital; ld1 18:05 Drug: Famotidine IVP 20 mg Route: IVP; Site: right antecubital; ld1 18:05 Drug: Ondansetron IVP 4 mg Route: IVP; Site: right antecubital; ld1 Disposition Summary: 10/11/22 19:14 Discharge Ordered Location: Home cp Problem: new cp Symptoms: have improved cp Condition: Stable cp Diagnosis - Epigastric pain cp Followup: cp - With: Tom Aranda MD - When: 1 week - Reason: pain continues Discharge Instructions: - Discharge Summary Sheet cp - Abdominal Pain, Adult cp - Gastritis, Adult cp Forms: - Medication Reconciliation Form cp - Thank You Letter cp - Antibiotic Education cp - Prescription Opioid Use cp Prescriptions: - Protonix 40 mg Oral Tablet - take 1 tablet by ORAL route once daily; 30 tablet; Refills: 0, Product cp Selection Permitted - Zofran 4 mg Oral Tablet - take 1 tablet by ORAL route every 12 hours As needed; 20 tablet; Refills: 0, cp Product Selection Permitted Signatures: Dispatcher [employer] Jena Morris, RN RN Joe Hi PA PA cp Gissel Sánchez RN RN ld1
--- NOTE | 2022-10-11 19:14 | ER ---
Nurse's Notes [facility] Name: Denys Triana Age: 27 yrs Sex: Male : 1995 Arrival Date: 10/11/2022 Time: 14:52 Bed 18 Private MD: Diagnosis: Epigastric pain Presentation: 10/11 15:15 Chief complaint: Patient states: top of stomach cramping X 1 week intermittent. iw Coronavirus screen: At this time, the client does not indicate any symptoms associated with coronavirus-19. Ebola Screen: Patient negative for fever greater than or equal to 101.5 degrees Fahrenheit, and additional compatible Ebola Virus Disease symptoms Patient denies exposure to infectious person. Patient denies travel to an Ebola-affected area in the 21 days before illness onset. No symptoms or risks identified at this time. Initial Sepsis Screen: Does the patient meet any 2 criteria? No. Patient's initial sepsis screen is negative. Does the patient have a suspected source of infection? No. Patient's initial sepsis screen is negative. Risk Assessment: Do you want to hurt yourself or someone else? Patient reports no desire to harm self or others. Onset of symptoms was October 05, 2022. 15:15 Method Of Arrival: Ambulatory iw 15:15 Acuity: IVORY 3 iw Historical: - Allergies: 15:15 Zithromax; iw - Home Meds: 15:15 None [Active]; iw - PMHx: 15:15 Hypothyroidism; iw - PSHx: 15:15 bilateral feet; iw - Immunization history:: Adult Immunizations up to date. - Social history:: Smoking status: . Screenin:56 [facility] ED Fall Risk Assessment (Adult) History of falling in the last 3 months, ld1 including since admission No falls in past 3 months (0 pts). Abuse screen: Denies threats or abuse. Denies injuries from another. Nutritional screening: No deficits noted. Tuberculosis screening: No symptoms or risk factors identified. Assessment: 17:56 General: Appears in no apparent distress. comfortable, Behavior is calm, cooperative, ld1 appropriate for age. Pain: Complains of pain in epigastric area Pain does not radiate. Pain currently is 8 out of 10 on a pain scale. Quality of pain is described as throbbing. Neuro: Level of Consciousness is awake, alert, obeys commands, Oriented to person, place, time, situation. Cardiovascular: Capillary refill < 3 seconds Patient's skin is warm and dry. Respiratory: Airway is patent Respiratory effort is even, unlabored. GI: Abdomen is round non-distended. : No signs and/or symptoms were reported regarding the genitourinary system. EENT: No signs and/or symptoms were reported regarding the EENT system. Derm: No signs and/or symptoms reported regarding the dermatologic system. Musculoskeletal: No signs and/or symptoms reported regarding the musculoskeletal system. 19:46 Reassessment: Patient appears in no apparent distress at this time. Patient and/or jb4 family updated on plan of care and expected duration. Pain level reassessed. Patient is alert, oriented x 3, equal unlabored respirations, skin warm/dry/pink. Vital Signs: 15:16 BP 125 / 87; Pulse 87; Resp 16; Temp 98.3; Pulse Ox 98% on R/A; Weight 104.33 kg; iw Height 5 ft. 10 in. ; Pain 5/10; 17:56 BP 129 / 79; Pulse 81; Resp 18; Pulse Ox 100% on R/A; ld1 15:16 Body Mass Index 33.00 (104.33 kg, 177.8 cm) iw 15:16 Pain Scale: Adult iw ED Course: 14:59 Patient arrived in ED. am2 15:04 Joe De Leon PA is PHCP. cp 15:04 Joe Black MD is Attending Physician. cp 15:15 Triage completed. iw 15:33 Initial lab(s) drawn, by me, sent to lab. Inserted saline lock: 20 gauge in right tm3 antecubital area, using aseptic technique. 15:34 Urine collected: clean catch specimen, clear. tm3 16:19 Abdomen Limited US In Process Unspecified. EDMS 17:56 Gissel Sánchez, RN is Primary Nurse. ld1 17:56 No provider procedures requiring assistance completed. ld1 17:56 Patient has correct armband on for positive identification. Placed in gown. Bed in low ld1 position. Call light in reach. Side rails up X2. nurse monitoring on. Pulse ox on. NIBP on. Door closed. Noise minimized. Warm blanket given. 18:34 CT Abd/Pelvis - IV Contrast Only In Process Unspecified. EDMS 19:13 Tom Aranda MD is Referral Physician. cp 19:46 IV discontinued, intact, bleeding controlled, No redness/swelling at site. Pressure jb4 dressing applied. Administered Medications: 18:05 Drug: NS 0.9% IV 1000 ml Route: IV; Rate: 1 bolus; Site: right antecubital; ld1 18:05 Drug: Famotidine IVP 20 mg Route: IVP; Site: right antecubital; ld1 18:05 Drug: Ondansetron IVP 4 mg Route: IVP; Site: right antecubital; ld1 Medication: 17:56 VIS not applicable for this client. ld1 Outcome: 19:14 Discharge ordered by MD. cp 19:46 Discharged to home ambulatory. jb4 19:46 Condition: stable 19:46 Discharge instructions given to patient, Instructed on discharge instructions, follow up and referral plans. medication usage, Demonstrated understanding of instructions, follow-up care, medications, Prescriptions given X 2. 19:47 Patient left the ED. jb4 Signatures: Dispatcher [employer] EDDE George Chackoi tm3 Jena Milian, RN RN iw Joe De Leon, MOISES PA cp Skip Garcia, RN RN jb4 Macey Seals am2 Gissel Sánchez, RN RN ld1
[2022-10-11 20:15] VITALS: TEMP 98.3
[2022-10-11 20:16] VITALS: BP 129/79; O2SAT 100
== END 2022-10-11 19:47 | disposition home or self-care (01) ==
LOC: ER 14:52
DX: R10.13 Epigastric pain (principal)
CPT/HCPCS: 36415; 74177; 76705; 80053; 81001; 83690; 85025; 96374; 96375; 99285; J7030; Q0162; Q9967